=== PATIENT | female | born 1955 | race African-American/Black ===

== ENCOUNTER 2018-06-19 13:51 | Inpatient (IN) | payer MEDICAID, OTHER ==
[~2018-06-19] VITALS: Ht 157.5 cm; Wt 63.0 kg
[2018-06-19] VITALS (10 sets, daily range): BP systolic 103–146; BP diastolic 67–96
[~2018-06-19 13:51] MED LIST: ASPI81CH43 PO; CLOP75TA28 PO; LISI-709 PO
[2018-06-19 14:27] LABS: Hematocrit 41.6 % (36.0-46.0); Hemoglobin 14.2 g/dL (12.2-16.2); Mean Corpuscular Hemoglobin 31.8 pg (28.0-32.0); Mean Corpuscular Hgb Conc. 34.2 g/dL (32.0-36.0); Mean Corpuscular Volume 92.9 fL (80.0-100.0); Platelet Count (auto) 217 10^3/uL (140-450); Red Blood Cells 4.48 10^6/uL (4.0-5.20); Red Cell Distribution Width 14.2 % (11.8-14.3); White Blood Cell 18.3 10^3/uL (4.4-10.8)
[2018-06-19 14:38] LABS: Basophils % (manual) 0 (0.0-2.0); Blast Cells 0; Eosinophils % (manual) 0 (0-7); Metamyelocytes % 0; Myelocytes % 0; Promyelocytes % 0; Reactive Lymphocytes 0
[2018-06-19 14:41] LABS: Alanine Aminotransferase 29 U/L (13-56); Albumin 2.3 g/dL (3.4-5.0); Anion Gap 8 (5-15); Aspartate Aminotransferase 61 U/L (15-37); Blood Alcohol < 3.0 mg/dL (0-5); Calcium 7.9 mg/dL (8.5-10.1); Carbon Dioxide 28 mmol/L (21-32); Chloride 96 mmol/L (98-107); GFR African American 73 mL/min; GFR Non-African American 60 mL/min; Glucose 131 mg/dL (74-106); Potassium 3.6 mmol/L (3.5-5.1); Sodium 132 mmol/L (136-145)
[2018-06-19 14:45] LABS: Alkaline Phosphatase 69 U/L (45-117); Bilirubin, Total 1.2 mg/dL (0.2-1.0); Lactic Acid w/Reflex 2.7 mmol/L (0.4-2.0); Total Protein 7.5 g/dL (6.4-8.2)
[2018-06-19 15:00] LABS: Band Neutrophils % (manual) 16; Lymphocytes % (manual) 3 (10.0-50.0); Monocytes % (manual) 3 (0-12)
[2018-06-19] MEDS ORDERED: SODIUM CHLORIDE 0.9% 1,000 ML IV ONE (15:00)
[2018-06-19] MEDS ORDERED: LEVOFLOXACIN 500MG 100 ML IV ONE (15:00)
[2018-06-19 15:08] LABS: BUN/Creatinine Ratio 25.3; Blood Urea Nitrogen 25 mg/dL (7-18)
[2018-06-19] MEDS ORDERED: NITROGLYCERIN 0.2MG/HR TOPICAL PATCH TD ONE (15:30)
[2018-06-19] MEDS ORDERED: ONDANSETRON HCL 4 MG/2 ML VIAL IV PRN (15:30)
[2018-06-19] MEDS ORDERED: MORPHINE SULFATE 4 MG/ML SYR/VIAL IV PRN ×2 (15:30)
[2018-06-19] MEDS ORDERED: NITROGLYCERIN 0.4 MG SL TAB SL PRN (15:30)
[2018-06-19] MEDS ORDERED: HYDROcodone-ACET 5/325MG TAB PO PRN (15:30)
[2018-06-19] MEDS ORDERED: METOPROLOL TARTRATE 25 MG TAB PO ONE (15:30)
[2018-06-19] MEDS ORDERED: VANCOMYCIN PER PHARMACY 0 MG IV SCH (15:30)
[2018-06-19] MEDS ORDERED: ASPirin 81 mg TAB PO ONE (15:30)
[2018-06-19] MEDS ORDERED: METOPROLOL TARTRATE 1MG/1ML-5ML VIAL IV ONE ×2 (16:15→18:30)
[2018-06-19] MEDS: SODIUM CHLORIDE 0.9% 1,000 ML IV SCH ×2 (16:17→23:30)
[2018-06-19] MEDS: VANCOMYCIN 1GM/250ML 250 ML IV SCH (16:18)
[2018-06-19] MEDS ORDERED: FLUV100T15 PO (17:08)
[2018-06-19 17:46] LABS: Cholesterol 86 mg/dL (< 200); HDL Cholesterol 30 mg/dL (40-59); LDL Cholesterol 38 mg/dL (< 100); Triglycerides 111 mg/dL (< 150)
[2018-06-19] MEDS: LORazepam 2MG/ML-1ML VIAL IV PRN (17:49)
[2018-06-19 18:19] LABS: Urine Bacteria NONE SEEN /hpf (None Seen); Urine Blood 2+ /uL (Negative); Urine Hyaline Cast FEW /lpf (0 - 2); Urine Mucus FEW (None Seen); Urine Specific Gravity 1.017 (1.001-1.035); Urine WBC 3 /hpf (0 - 5)
[2018-06-19] MEDS: IPRATROPIUM BROM 0.5 MG/2.5ML INH SOL NEB SCH (18:20)
[2018-06-19 18:29] LABS: Alcohol, Urine < 3.0 mg/dL (0-5); Benzodiazephine Screen, Urine NEGATIVE (NEGATIVE); Cannabinoid Screen, Urine NEGATIVE (NEGATIVE)
[2018-06-19 18:35] LABS: Amphetamine Screen, Urine NEGATIVE (NEGATIVE); Barbiturate Scree,Urine NEGATIVE (NEGATIVE); Cocaine Screen, Urine NEGATIVE (NEGATIVE); Opiate Scree,Urine NEGATIVE (NEGATIVE); Phencyclidine Screen, Urine NEGATIVE (NEGATIVE)
[2018-06-19] MEDS ORDERED: NOREPINEPHRINE 8 MG/250ML KIT 0 ML IV ONE (18:57)
[2018-06-19] MEDS ORDERED: PHENYLEPHRINE IV 0 ML IV ONE (18:57)
[2018-06-19] MEDS ORDERED: DIGOXIN (250MCG/ML) 2 ML AMPULE ONE (19:00)
[2018-06-19] MEDS ORDERED: DIGOXIN (250MCG/ML) 2 ML AMPULE IV ONE (19:00)
[2018-06-19] MEDS ORDERED: SODIUM CHLORIDE 0.9% 500 ML IV ONE (19:15)
[2018-06-19] MEDS: ENOXAPARIN SOD 60 MG/0.6 ML SYRINGE SC SCH (19:20)
[2018-06-19] MEDS: PIPERACILLIN-TAZOB 3.375GM 100 ML IV SCH ×2 (19:36→23:32)
[2018-06-19] MEDS: METOPROLOL TARTRATE 25 MG TAB PO SCH (21:06)
[2018-06-19 21:37] LABS: INR 0.97 (0.9-1.15); Partial Thromboplastin Time 45.9 sec (23.78-33.04); Prothrombin Time 10.4 sec (9.27-12.13)
[2018-06-20] VITALS (21 sets, daily range): BP systolic 97–137; BP diastolic 62–91
[2018-06-20] MEDS: IPRATROPIUM BROM 0.5 MG/2.5ML INH SOL NEB SCH ×5 (00:32→23:44)
[2018-06-20] MEDS: METOPROLOL TARTRATE 1MG/1ML-5ML VIAL IV PRN ×2 (00:41→06:26)
[2018-06-20] MEDS ORDERED: DILTIAZEM HCL 25 MG/5 ML VIAL IV ONE ×2 (05:00→05:22)
[2018-06-20] MEDS: SODIUM CHLORIDE 0.9% 1,000 ML IV SCH ×2 (05:29→16:50)
[2018-06-20] MEDS: PIPERACILLIN-TAZOB 3.375GM 100 ML IV SCH ×4 (05:40→23:43)
[2018-06-20] MEDS: LORazepam 2MG/ML-1ML VIAL IV PRN (06:02)
[2018-06-20] MEDS: ASPirin 81 mg TAB PO SCH (10:00)
[2018-06-20] MEDS: PANTOPRAZOLE 40 MG/10 ML VIAL IV SCH (10:00)
[2018-06-20] MEDS: METOPROLOL TARTRATE 25 MG TAB PO SCH ×2 (10:00→21:55)
[2018-06-20] MEDS ORDERED: NITROGLYCERIN 0.2MG/HR TOPICAL PATCH TD SCH (10:00)
[2018-06-20] MEDS: ENOXAPARIN SOD 60 MG/0.6 ML SYRINGE SC SCH ×2 (10:00→21:55)
[2018-06-20] MEDS: ACETAMINOPHEN 650 MG RECT SUPP PR PRN (10:01)
[2018-06-20] MEDS ORDERED: IOHEXOL 350 MG/ML 100ML IJ ONE (13:01)
[2018-06-20 13:23] LABS: Hematocrit 42.9 % (36.0-46.0); Mean Corpuscular Hgb Conc. 32.7 g/dL (32.0-36.0); Mean Corpuscular Volume 94.7 fL (80.0-100.0); Platelet Count (auto) 200 10^3/uL (140-450); Red Blood Cells 4.53 10^6/uL (4.0-5.20); White Blood Cell 19.5 10^3/uL (4.4-10.8)
[2018-06-20 13:28] LABS: Basophils % (manual) 0 (0.0-2.0); Blast Cells 0; Eosinophils % (manual) 0 (0-7); Metamyelocytes % 0; Myelocytes % 0; Promyelocytes % 0; Reactive Lymphocytes 0
[2018-06-20] MEDS ORDERED: IPRATROPIUM BROM 0.5 MG/2.5ML INH SOL NEB PRN (13:30)
[2018-06-20 13:35] LABS: Albumin 1.7 g/dL (3.4-5.0); BUN/Creatinine Ratio 26.2; Calcium 7.8 mg/dL (8.5-10.1); Magnesium 2.5 mg/dL (1.6-2.6)
[2018-06-20 13:37] LABS: Bilirubin, Total 1.8 mg/dL (0.2-1.0); Total Protein 6.5 g/dL (6.4-8.2)
[2018-06-20 13:41] LABS: Band Neutrophils % (manual) 6; Lymphocytes % (manual) 8 (10.0-50.0); Monocytes % (manual) 6 (0-12)
[2018-06-20] MEDS: VANCOMYCIN 1GM/250ML 250 ML IV SCH (17:40)
[2018-06-21] VITALS (9 sets, daily range): BP systolic 104–136; BP diastolic 53–79
[2018-06-21] MEDS: SODIUM CHLORIDE 0.9% 1,000 ML IV SCH ×4 (01:01→23:39)
[2018-06-21] MEDS: METOPROLOL TARTRATE 1MG/1ML-5ML VIAL IV PRN ×2 (01:02→02:16)
[2018-06-21] MEDS: ACETAMINOPHEN 650 MG RECT SUPP PR PRN ×2 (01:22→11:57)
[2018-06-21] MEDS: PIPERACILLIN-TAZOB 3.375GM 100 ML IV SCH ×4 (05:31→23:38)
[2018-06-21 05:35] LABS: Basophils # (auto) 0 uL; Basophils % (auto) 0.1 % (0.0-2.0); Eosinophils # (auto) 0 uL; Eosinophils % (auto) 0.1 % (0.0-7.0); Hematocrit 37.3 % (36.0-46.0); Hemoglobin 12.5 g/dL (12.2-16.2); Lymphocytes # (auto) 0.4 uL; Lymphocytes % (auto) 2.7 % (10.0-50.0); Mean Corpuscular Hemoglobin 31.8 pg (28.0-32.0); Mean Corpuscular Hgb Conc. 33.4 g/dL (32.0-36.0); Mean Corpuscular Volume 95.1 fL (80.0-100.0); Monocytes # (auto) 0.3 uL; Monocytes % (auto) 1.6 % (0.0-12.0); Neutrophils # (auto) 14.8 uL; Neutrophils % (auto) 95.5 % (37.0-80.0); Platelet Count (auto) 208 10^3/uL (140-450); Red Blood Cells 3.92 10^6/uL (4.0-5.20); White Blood Cell 15.5 10^3/uL (4.4-10.8)
[2018-06-21 05:51] LABS: Albumin 1.6 g/dL (3.4-5.0); Calcium 7.9 mg/dL (8.5-10.1); Magnesium 2.4 mg/dL (1.6-2.6); Potassium 3.4 mmol/L (3.5-5.1)
[2018-06-21] MEDS: IPRATROPIUM BROM 0.5 MG/2.5ML INH SOL NEB SCH ×3 (05:51→18:31)
[2018-06-21 05:57] LABS: BUN/Creatinine Ratio 27.9; Bilirubin, Total 1.4 mg/dL (0.2-1.0); Total Protein 6.1 g/dL (6.4-8.2)
[2018-06-21] MEDS: PANTOPRAZOLE 40 MG/10 ML VIAL IV SCH (09:55)
[2018-06-21] MEDS: ENOXAPARIN SOD 60 MG/0.6 ML SYRINGE SC SCH (09:55)
[2018-06-21] MEDS: METOPROLOL TARTRATE 25 MG TAB PO SCH (09:57)
[2018-06-21] MEDS: ASPirin 81 mg TAB PO SCH (09:57)
[2018-06-21] MEDS: METOPROLOL TARTRATE 1MG/1ML-5ML VIAL IV SCH ×3 (11:56→23:38)
[2018-06-21] MEDS ORDERED: methylPREDNISolone SOD SUCC 40 MG/ML VL IV ONE (13:00)
[2018-06-21] MEDS: VANCOMYCIN 1GM/250ML 250 ML IV SCH (15:49)
[2018-06-21] MEDS ORDERED: DILTIAZEM HCL 25 MG/5 ML VIAL IV ONE (16:00)
[2018-06-21] MEDS: ACETYLCYSTEINE 20%(200MG/ML) SOL 4ML NEB SCH (18:32)
[2018-06-21] MEDS: methylPREDNISolone SOD SUCC 40 MG/ML VL IV SCH (21:27)
[2018-06-22] VITALS (17 sets, daily range): BP systolic 98–157; BP diastolic 48–98
[2018-06-22] MEDS: IPRATROPIUM BROM 0.5 MG/2.5ML INH SOL NEB SCH ×4 (00:24→18:57)
[2018-06-22] MEDS: ACETYLCYSTEINE 20%(200MG/ML) SOL 4ML NEB SCH ×4 (00:24→18:58)
[2018-06-22 05:00] LABS: Basophils # (auto) 0 uL; Basophils % (auto) 0.1 % (0.0-2.0); Eosinophils # (auto) 0 uL; Hematocrit 41.1 % (36.0-46.0); Hemoglobin 13.4 g/dL (12.2-16.2); Lymphocytes # (auto) 0.4 uL; Lymphocytes % (auto) 2.3 % (10.0-50.0); Mean Corpuscular Hemoglobin 31.5 pg (28.0-32.0); Mean Corpuscular Hgb Conc. 32.6 g/dL (32.0-36.0); Mean Corpuscular Volume 96.4 fL (80.0-100.0); Monocytes # (auto) 0.6 uL; Monocytes % (auto) 3.1 % (0.0-12.0); Neutrophils # (auto) 17.7 uL; Neutrophils % (auto) 94.5 % (37.0-80.0); Nucleated Red Blood Cells % 0.1 %; Platelet Count (auto) 262 10^3/uL (140-450); Red Blood Cells 4.26 10^6/uL (4.0-5.20); Red Cell Distribution Width 16.1 % (11.8-14.3); White Blood Cell 18.7 10^3/uL (4.4-10.8)
[2018-06-22 05:31] LABS: Albumin 1.5 g/dL (3.4-5.0); Calcium 8.2 mg/dL (8.5-10.1); Potassium 3.8 mmol/L (3.5-5.1)
[2018-06-22 05:38] LABS: BUN/Creatinine Ratio 27.2; Bilirubin, Total 0.7 mg/dL (0.2-1.0); Total Protein 6.3 g/dL (6.4-8.2)
[2018-06-22] MEDS: PIPERACILLIN-TAZOB 3.375GM 100 ML IV SCH (05:44)
[2018-06-22] MEDS: METOPROLOL TARTRATE 1MG/1ML-5ML VIAL IV SCH ×3 (05:44→17:47)
[2018-06-22] MEDS ORDERED: METOPROLOL TARTRATE 1MG/1ML-5ML VIAL IV ONE (08:45)
[2018-06-22] MEDS: ASPirin 81 mg TAB PO SCH (09:32)
[2018-06-22] MEDS: methylPREDNISolone SOD SUCC 40 MG/ML VL IV SCH ×2 (09:36→23:34)
[2018-06-22] MEDS: PANTOPRAZOLE 40 MG/10 ML VIAL IV SCH (09:36)
[2018-06-22] MEDS: ENOXAPARIN SOD 30 MG/0.3 ML SYRINGE SC SCH (09:37)
[2018-06-22] MEDS: LORazepam 2MG/ML-1ML VIAL IV PRN (10:37)
[2018-06-22] MEDS: LINEZOLID 600MG/300ML 300 ML IV SCH ×2 (10:41→22:43)
[2018-06-22] MEDS: LEVOFLOXACIN 750 MG IV SCH (12:06)
[2018-06-22 12:11] LABS: Protein, Urine 168.8 mg/dL (0.0-11.9)
[2018-06-22] MEDS: SODIUM BICARBONATE 50ML VIAL 50 ML in D5W/SOD CHL 0.45%/KCL 20MEQ 1,000 ML IV SCH ×2 (13:00→21:02)
[2018-06-22] MEDS: FLUCONAZOLE 200MG/100ML 100 ML IV SCH (13:29)
[2018-06-22] MEDS: MEROPENEM 1GM IVPB 100 ML IV SCH ×2 (13:44→22:28)
[2018-06-22] MEDS ORDERED: FLUCONAZOLE 200MG/100ML 100 ML IV ONE (13:45)
[2018-06-22] MEDS: ALBUMIN 25% 100 ML IV SCH ×2 (13:54→19:34)
[2018-06-23] VITALS (8 sets, daily range): BP systolic 139–174; BP diastolic 72–99
[2018-06-23] MEDS: IPRATROPIUM BROM 0.5 MG/2.5ML INH SOL NEB SCH ×3 (00:15→21:06)
[2018-06-23] MEDS: ACETYLCYSTEINE 20%(200MG/ML) SOL 4ML NEB SCH ×3 (00:15→21:07)
[2018-06-23] MEDS: METOPROLOL TARTRATE 1MG/1ML-5ML VIAL IV SCH ×4 (01:19→18:00)
[2018-06-23] MEDS: LORazepam 2MG/ML-1ML VIAL IV PRN (02:27)
[2018-06-23] MEDS: ALBUMIN 25% 100 ML IV SCH (03:32)
[2018-06-23] MEDS: SODIUM BICARBONATE 50ML VIAL 50 ML in D5W/SOD CHL 0.45%/KCL 20MEQ 1,000 ML IV SCH (05:37)
[2018-06-23 05:49] LABS: Basophils # (auto) 0 uL; Basophils % (auto) 0.1 % (0.0-2.0); Eosinophils # (auto) 0 uL; Hematocrit 31.8 % (36.0-46.0); Hemoglobin 10.6 g/dL (12.2-16.2); Lymphocytes # (auto) 0.6 uL; Lymphocytes % (auto) 4.3 % (10.0-50.0); Mean Corpuscular Hemoglobin 31.7 pg (28.0-32.0); Mean Corpuscular Hgb Conc. 33.4 g/dL (32.0-36.0); Mean Corpuscular Volume 94.8 fL (80.0-100.0); Monocytes # (auto) 0.4 uL; Neutrophils # (auto) 12.3 uL; Neutrophils % (auto) 92.6 % (37.0-80.0); Platelet Count (auto) 193 10^3/uL (140-450); Red Blood Cells 3.36 10^6/uL (4.0-5.20); Red Cell Distribution Width 15.7 % (11.8-14.3); White Blood Cell 13.3 10^3/uL (4.4-10.8)
[2018-06-23 06:05] LABS: Immunoglobulin G, Serum 1057 mg/dL (700-1600)
[2018-06-23 06:19] LABS: Potassium 3.6 mmol/L (3.5-5.1); Sodium 145 mmol/L (136-145)
[2018-06-23 06:20] LABS: Anion Gap 6 (5-15); Carbon Dioxide 24 mmol/L (21-32); Chloride 115 mmol/L (98-107)
[2018-06-23 06:21] LABS: Alanine Aminotransferase 39 U/L (13-56); Alkaline Phosphatase 124 U/L (45-117); Aspartate Aminotransferase 116 U/L (15-37); BUN/Creatinine Ratio 25.1; Blood Urea Nitrogen 55 mg/dL (7-18); Calcium 7.9 mg/dL (8.5-10.1); GFR African American 29 mL/min; GFR Non-African American 24 mL/min; Glucose 219 mg/dL (74-106)
[2018-06-23 06:22] LABS: Albumin 2.7 g/dL (3.4-5.0); Bilirubin, Total 0.9 mg/dL (0.2-1.0)
[2018-06-23] MEDS: LEVOFLOXACIN 750 MG IV SCH (09:43)
[2018-06-23] MEDS: LINEZOLID 600MG/300ML 300 ML IV SCH ×2 (09:44→23:24)
[2018-06-23] MEDS: ASPirin 81 mg TAB PO SCH (10:00)
[2018-06-23] MEDS ORDERED: DILTIAZEM HCL 120MG ER CAP PO SCH (10:00)
[2018-06-23] MEDS ORDERED: DILTIAZEM HCL 25 MG/5 ML VIAL IV ONE ×2 (10:15→11:30)
[2018-06-23] MEDS: SODIUM CHLORIDE 0.9% 1,000 ML IV SCH (10:47)
[2018-06-23] MEDS: PANTOPRAZOLE 40 MG/10 ML VIAL IV SCH (10:47)
[2018-06-23] MEDS: FLUCONAZOLE 200MG/100ML 100 ML IV SCH ×2 (10:47→12:28)
[2018-06-23] MEDS: methylPREDNISolone SOD SUCC 40 MG/ML VL IV SCH ×2 (10:48→21:28)
[2018-06-23] MEDS: ENOXAPARIN SOD 30 MG/0.3 ML SYRINGE SC SCH (10:48)
[2018-06-23] MEDS: MEROPENEM 1GM IVPB 100 ML IV SCH ×2 (12:14→21:28)
[2018-06-23] MEDS: DILTIAZEM 125mg/125ml BAG KIT 100 ML IV SCH (13:31)
[2018-06-24] VITALS (51 sets, daily range): BP systolic 54–169; BP diastolic 71–95
[2018-06-24] MEDS: METOPROLOL TARTRATE 1MG/1ML-5ML VIAL IV SCH ×5 (04:14→23:36)
[2018-06-24 05:40] LABS: Basophils # (auto) 0 uL; Eosinophils # (auto) 0 uL; Hematocrit 34.5 % (36.0-46.0); Hemoglobin 11.3 g/dL (12.2-16.2); Lymphocytes # (auto) 0.5 uL; Lymphocytes % (auto) 3.5 % (10.0-50.0); Mean Corpuscular Hemoglobin 30.8 pg (28.0-32.0); Mean Corpuscular Hgb Conc. 32.8 g/dL (32.0-36.0); Mean Corpuscular Volume 93.7 fL (80.0-100.0); Monocytes # (auto) 0.3 uL; Monocytes % (auto) 2.2 % (0.0-12.0); Neutrophils # (auto) 12.7 uL; Neutrophils % (auto) 94.3 % (37.0-80.0); Nucleated Red Blood Cells % 0.1 %; Platelet Count (auto) 216 10^3/uL (140-450); Red Blood Cells 3.68 10^6/uL (4.0-5.20); White Blood Cell 13.5 10^3/uL (4.4-10.8)
[2018-06-24 05:48] LABS: BUN/Creatinine Ratio 25.4; Calcium 8.1 mg/dL (8.5-10.1); Potassium 3.5 mmol/L (3.5-5.1)
[2018-06-24] MEDS: IPRATROPIUM BROM 0.5 MG/2.5ML INH SOL NEB SCH ×4 (06:24→19:24)
[2018-06-24] MEDS: ACETYLCYSTEINE 20%(200MG/ML) SOL 4ML NEB SCH ×4 (06:25→19:24)
[2018-06-24] MEDS: DILTIAZEM 125mg/125ml BAG KIT 100 ML IV SCH (07:47)
[2018-06-24] MEDS: ASPirin 81 mg TAB PO SCH (10:00)
[2018-06-24] MEDS: FLUCONAZOLE 200MG/100ML 100 ML IV SCH (11:08)
[2018-06-24] MEDS: MEROPENEM 500MG IVPB 50 ML IV SCH ×2 (11:08→21:46)
[2018-06-24] MEDS: LINEZOLID 600MG/300ML 300 ML IV SCH ×2 (11:08→23:35)
[2018-06-24] MEDS: methylPREDNISolone SOD SUCC 40 MG/ML VL IV SCH ×2 (11:08→21:47)
[2018-06-24] MEDS: PANTOPRAZOLE 40 MG/10 ML VIAL IV SCH (11:08)
[2018-06-24] MEDS: ENOXAPARIN SOD 30 MG/0.3 ML SYRINGE SC SCH (11:09)
[2018-06-24] MEDS: SODIUM CHLORIDE 0.9% 1,000 ML IV SCH ×2 (11:20→21:46)
[2018-06-25] VITALS (12 sets, daily range): BP systolic 133–151; BP diastolic 71–80
[2018-06-25] MEDS: IPRATROPIUM BROM 0.5 MG/2.5ML INH SOL NEB SCH ×4 (00:48→19:14)
[2018-06-25] MEDS: ACETYLCYSTEINE 20%(200MG/ML) SOL 4ML NEB SCH ×4 (00:48→19:15)
[2018-06-25] MEDS: DILTIAZEM 125mg/125ml BAG KIT 100 ML IV SCH ×2 (02:08→21:37)
[2018-06-25] MEDS: METOPROLOL TARTRATE 1MG/1ML-5ML VIAL IV SCH ×5 (06:31→23:33)
[2018-06-25] MEDS: ASPirin 81 mg TAB PO SCH (09:34)
[2018-06-25] MEDS: PANTOPRAZOLE 40 MG/10 ML VIAL IV SCH (09:46)
[2018-06-25] MEDS: methylPREDNISolone SOD SUCC 40 MG/ML VL IV SCH ×2 (09:46→21:36)
[2018-06-25] MEDS: ENOXAPARIN SOD 30 MG/0.3 ML SYRINGE SC SCH (09:46)
[2018-06-25] MEDS: FLUCONAZOLE 200MG/100ML 100 ML IV SCH (09:47)
[2018-06-25] MEDS ORDERED: LEVOFLOXACIN 750 MG IV SCH (10:00)
[2018-06-25] MEDS: SOD CHL 0.45% 1,000 ML IV SCH (12:08)
[2018-06-25] MEDS: LINEZOLID 600MG/300ML 300 ML IV SCH ×2 (12:08→21:36)
[2018-06-25] MEDS: MEROPENEM 500MG IVPB 50 ML IV SCH ×2 (13:19→21:36)
[2018-06-26] VITALS (16 sets, daily range): BP systolic 80–140; BP diastolic 49–85
[2018-06-26] MEDS: IPRATROPIUM BROM 0.5 MG/2.5ML INH SOL NEB SCH ×4 (00:28→18:40)
[2018-06-26] MEDS: ACETYLCYSTEINE 20%(200MG/ML) SOL 4ML NEB SCH ×4 (00:28→18:40)
[2018-06-26 05:18] LABS: Basophils # (auto) 0 uL; Basophils % (auto) 0.1 % (0.0-2.0); Eosinophils # (auto) 0 uL; Hematocrit 35.9 % (36.0-46.0); Hemoglobin 11.6 g/dL (12.2-16.2); Lymphocytes # (auto) 0.4 uL; Lymphocytes % (auto) 2.9 % (10.0-50.0); Mean Corpuscular Hemoglobin 31.1 pg (28.0-32.0); Mean Corpuscular Hgb Conc. 32.2 g/dL (32.0-36.0); Mean Corpuscular Volume 96.8 fL (80.0-100.0); Monocytes # (auto) 0.3 uL; Monocytes % (auto) 2.4 % (0.0-12.0); Neutrophils # (auto) 12.6 uL; Neutrophils % (auto) 94.6 % (37.0-80.0); Nucleated Red Blood Cells % 0.4 %; Platelet Count (auto) 227 10^3/uL (140-450); Red Blood Cells 3.71 10^6/uL (4.0-5.20); Red Cell Distribution Width 16.7 % (11.8-14.3); White Blood Cell 13.3 10^3/uL (4.4-10.8)
[2018-06-26] MEDS: METOPROLOL TARTRATE 1MG/1ML-5ML VIAL IV SCH ×3 (05:25→17:45)
[2018-06-26] MEDS: SOD CHL 0.45% 1,000 ML IV SCH (05:26)
[2018-06-26 05:31] LABS: Calcium 7.8 mg/dL (8.5-10.1); Potassium 4.5 mmol/L (3.5-5.1)
[2018-06-26 05:36] LABS: BUN/Creatinine Ratio 25.7; Bilirubin, Total 0.3 mg/dL (0.2-1.0); Total Protein 5.8 g/dL (6.4-8.2)
[2018-06-26] MEDS: methylPREDNISolone SOD SUCC 40 MG/ML VL IV SCH ×2 (09:57→21:44)
[2018-06-26] MEDS: PANTOPRAZOLE 40 MG/10 ML VIAL IV SCH (09:58)
[2018-06-26] MEDS: FLUCONAZOLE 200MG/100ML 100 ML IV SCH (09:58)
[2018-06-26] MEDS: ENOXAPARIN SOD 30 MG/0.3 ML SYRINGE SC SCH (09:58)
[2018-06-26] MEDS: LINEZOLID 600MG/300ML 300 ML IV SCH ×2 (09:58→22:00)
[2018-06-26] MEDS: MEROPENEM 500MG IVPB 50 ML IV SCH ×2 (09:59→21:44)
[2018-06-26] MEDS: ASPirin 81 mg TAB PO SCH (09:59)
[2018-06-27] MEDS: METOPROLOL TARTRATE 1MG/1ML-5ML VIAL IV SCH
[2018-06-27] MEDS: ACETYLCYSTEINE 20%(200MG/ML) SOL 4ML NEB SCH
[2018-06-27] MEDS: IPRATROPIUM BROM 0.5 MG/2.5ML INH SOL NEB SCH
[2018-06-27 00:40] VITALS: BP 54/33
== END 2018-06-27 06:43 | disposition expired | DRG 871 ==
LOC: EDBD 13:51 → EDUNIT# 13:51 → ER 13:57 → OVERFLOW 15:28 → DOU IN ICU 16:53
PROVIDERS: ADMIT Nurse Practitioner Acute Care; ATTEND Internal Medicine
PROC: 5A09357 Assistance with Respiratory Ventilation, Less than 24 Consecutive Hours, Continuous Positive Airway Pressure (ICD-10-PCS; principal; 2018-06-19)
PROC: 5A09357 Assistance with Respiratory Ventilation, Less than 24 Consecutive Hours, Continuous Positive Airway Pressure (ICD-10-PCS; 2018-06-20)
PROC: 5A09357 Assistance with Respiratory Ventilation, Less than 24 Consecutive Hours, Continuous Positive Airway Pressure (ICD-10-PCS; 2018-06-21)
PROC: 5A09357 Assistance with Respiratory Ventilation, Less than 24 Consecutive Hours, Continuous Positive Airway Pressure (ICD-10-PCS; 2018-06-22)
PROC: 5A09357 Assistance with Respiratory Ventilation, Less than 24 Consecutive Hours, Continuous Positive Airway Pressure (ICD-10-PCS; 2018-06-23)
PROC: 5A09357 Assistance with Respiratory Ventilation, Less than 24 Consecutive Hours, Continuous Positive Airway Pressure (ICD-10-PCS; 2018-06-24)
PROC: 5A09357 Assistance with Respiratory Ventilation, Less than 24 Consecutive Hours, Continuous Positive Airway Pressure (ICD-10-PCS; 2018-06-25)
PROC: 5A09357 Assistance with Respiratory Ventilation, Less than 24 Consecutive Hours, Continuous Positive Airway Pressure (ICD-10-PCS; 2018-06-26)
PROC: 5A09357 Assistance with Respiratory Ventilation, Less than 24 Consecutive Hours, Continuous Positive Airway Pressure (ICD-10-PCS; 2018-06-27)
DX: A41.9 Sepsis, unspecified organism (principal); I21.A1 Myocardial infarction type 2; G93.41 Metabolic encephalopathy; E43 Unspecified severe protein-calorie malnutrition; N17.0 Acute kidney failure with tubular necrosis; J96.21 Acute and chronic respiratory failure with hypoxia; J69.0 Pneumonitis due to inhalation of food and vomit; J96.22 Acute and chronic respiratory failure with hypercapnia; E87.1 Hypo-osmolality and hyponatremia; J45.901 Unspecified asthma with (acute) exacerbation; J44.0 Chronic obstructive pulmonary disease with (acute) lower respiratory infection; J44.1 Chronic obstructive pulmonary disease with (acute) exacerbation; E87.2 Acidosis; B37.49 Other urogenital candidiasis; I13.0 Hypertensive heart and chronic kidney disease with heart failure and stage 1 through stage 4 chronic kidney disease, or unspecified chronic kidney disease; I47.1 Supraventricular tachycardia; Z66 Do not resuscitate; N18.9 Chronic kidney disease, unspecified; K21.9 Gastro-esophageal reflux disease without esophagitis; I08.0 Rheumatic disorders of both mitral and aortic valves; F17.210 Nicotine dependence, cigarettes, uncomplicated; F25.9 Schizoaffective disorder, unspecified; I50.9 Heart failure, unspecified; Z51.5 Encounter for palliative care; Z68.25 Body mass index [BMI] 25.0-25.9, adult; Z79.82 Long term (current) use of aspirin; Z79.899 Other long term (current) drug therapy; I25.2 Old myocardial infarction; Z86.73 Personal history of transient ischemic attack (TIA), and cerebral infarction without residual deficits; Z99.81 Dependence on supplemental oxygen
CPT/HCPCS: 36415; 36600; 70450; 71045; 71275; 80048; 80053; 80061; 80307; 80320; 81001; 82140; 82570; 82784; 82805; 82962; 83605; 83735; 83880; 84100; 84156; 84300; 84443; 84484; 85007; 85025; 85027; 85379; 85610; 85730; 86334; 86335; 87040; 87077; 87081; 87086; 87186; 87804; 93005; 93306; 94640; 94660; 96361; 96374; 99291; A4565; A6257; C9113; G0378; J1450; J1956; J2185; J2543; P9047